=== PATIENT | male | born 1990 | race Caucasian/White ===

== ENCOUNTER → 2020-10-07 | Outpatient (CLI) | payer SELFPAY | END | disposition home or self-care (01) | LOC: LABWHC1 15:58 | PROVIDERS: ATTEND Emergency Medicine | DX: Z20.822 Contact with and (suspected) exposure to COVID-19 (principal) | CPT/HCPCS: U0003; C9803; U0005 ==

== ENCOUNTER 2024-07-28 17:13 | Emergency (ER) | payer BC ==
--- NOTE | 2024-07-28 17:45 | ED ---
General Adult HPI - General Source: patient, RN notes reviewed <Ling Alvarez - Last Filed: 07/28/24 17:44> <Juan Toribio - Last Filed: 07/28/24 20:42> - General Stated complaint: abd pain Time Seen by Provider: 07/28/24 17:30 - History of Present Illness Initial comments: Quick [id number] male with no significant past medical history presents emergency room chief complaint of right lower quadrant abdominal pain described as a pressure started approximately 1530. Endorses vomiting, nausea, diarrhea. Denies fevers or chills. Denies previous surgical abdominal history. (Ling Alvarez) Review of Systems ROS Other: All systems not noted in ROS Statement are negative. <Ling Alvarez - Last Filed: 07/28/24 17:44> ROS Other: All systems not noted in ROS Statement are negative. <Juan Toribio - Last Filed: 07/28/24 20:42> ROS Statement: Those systems with pertinent positive or pertinent negative responses have been documented in the HPI. General Exam <Ling Alvarez - Last Filed: 07/28/24 17:44> - General Exam Comments Initial Comments: Visual Physical Exam Vital signs reviewed General: Well-appearing, nontoxic, no acute distress. Head: Normocephalic, atraumatic Eyes: PERRLA, EOMI ENT: Airway patent Chest: Nonlabored breathing Skin: No visual rash, normal skin tone Neuro: Alert and oriented 3 Musculoskeletal: No gross abnormalities (Ling Alvarez) Course Vital Signs 07/28/24 17:55 Temperature 98.3 F Pulse Rate 87 Respiratory 16 Rate Blood Pressure 146/83 O2 Sat by Pulse 97 Oximetry Medical Decision Making <Ling Alvarez - Last Filed: 07/28/24 17:44> - Lab Data Result diagrams: 07/28/24 19:17 07/28/24 19:17 <Juan Toribio - Last Filed: 07/28/24 20:42> - Medical Decision Making I completed the quick note portion of this chart signed Ling Alvarez PA-C (Ling Alvarez) - Lab Data Lab Results 07/28/24 07/28/24 07/28/24 Range/Units 19:17 19:17 19:17 WBC 9.5 (3.8-10.6) k/uL RBC 5.41 (4.30-5.90) m/uL Hgb 15.7 (13.0-17.5) gm/dL Hct 46.0 (39.0-53.0) % MCV 85.0 (80.0-100.0) fL MCH 29.0 (25.0-35.0) pg MCHC 34.2 (31.0-37.0) g/dL RDW 12.0 (11.5-15.5) % Plt Count 296 (150-450) k/uL MPV 6.7 Neutrophils % 50 % Lymphocytes % 38 % Monocytes % 6 % Eosinophils % 3 % Basophils % 1 % Neutrophils # 4.7 (1.3-7.7) k/uL Lymphocytes # 3.6 (1.0-4.8) k/uL Monocytes # 0.5 (0-1.0) k/uL Eosinophils # 0.3 (0-0.7) k/uL Basophils # 0.1 (0-0.2) k/uL Sodium 138 (137-145) mmol/L Potassium 3.9 (3.5-5.1) mmol/L Chloride 103 (98-107) mmol/L Carbon Dioxide 25 (22-30) mmol/L Anion Gap 10 mmol/L BUN 17 (9-20) mg/dL Creatinine 0.92 (0.66-1.25) mg/dL Est GFR (CKD-EPI)AfAm >90 (>60 ml/min/1.73 sqM) Est GFR (CKD-EPI)NonAf >90 (>60 ml/min/1.73 sqM) Glucose 98 (74-99) mg/dL Plasma Lactic Acid Noam 0.9 (0.7-2.0) mmol/L Calcium 10.0 (8.4-10.2) mg/dL Total Bilirubin 1.2 (0.2-1.3) mg/dL AST 31 (17-59) U/L ALT 24 (4-49) U/L Alkaline Phosphatase 78 (38-126) U/L Total Protein 8.1 (6.3-8.2) g/dL Albumin 5.2 H (3.5-5.0) g/dL Amylase 72 (30-110) U/L Lipase 170 (23-300) U/L Disposition <Ling Alvarez - Last Filed: 07/28/24 17:44> Is patient prescribed a controlled substance at d/c from ED?: No <Juan Toribio - Last Filed: 07/28/24 20:42> Clinical Impression: Abdominal pain Disposition: HOME SELF-CARE Condition: Good Instructions (If sedation given, give patient instructions): Abdominal Pain (ED) Referrals: None,Stated [Primary Care Provider] - 1-2 days
[2024-07-28 17:58] VITALS: RESP 16
[2024-07-28 19:26] LABS: Basophils # (A) 0.1 k/uL (0-0.2); Basophils % (A) 1 %; Eosinophils # (A) 0.3 k/uL (0-0.7); Eosinophils % (A) 3 %; HGB 15.7 gm/dL (13.0-17.5); Lymphocytes # (A) 3.6 k/uL (1.0-4.8); Lymphocytes % (A) 38 %; MCHC 34.2 g/dL (31.0-37.0); Mean Platelet Volume 6.7; Monocytes # (A) 0.5 k/uL (0-1.0); Monocytes % (A) 6 %; Neutrophils # (A) 4.7 k/uL (1.3-7.7); Neutrophils % (A) 50 %; Platelet Count 296 k/uL (150-450); RBC 5.41 m/uL (4.30-5.90); WBC 9.5 k/uL (3.8-10.6)
[2024-07-28 19:38] LABS: ALT 24 U/L (4-49); AST 31 U/L (17-59); African American GFR (CKD) >90 (>60 ml/min/1.73 sqM); Albumin 5.2 g/dL (3.5-5.0); Alkaline Phosphatase 78 U/L (38-126); Amylase 72 U/L (30-110); Anion Gap 10 mmol/L; Blood Urea Nitrogen 17 mg/dL (9-20); Carbon Dioxide 25 mmol/L (22-30); Chloride 103 mmol/L (98-107); Glucose 98 mg/dL (74-99); Lipase 170 U/L (23-300); Non-African American GFR(CKD) >90 (>60 ml/min/1.73 sqM); Potassium 3.9 mmol/L (3.5-5.1); Sodium 138 mmol/L (137-145); Total Bilirubin 1.2 mg/dL (0.2-1.3); Total Protein 8.1 g/dL (6.3-8.2)
--- NOTE | 2024-07-28 20:24 | CT ---
EXAMINATION TYPE: CT abdomen pelvis w con DATE OF EXAM: 07/28/2024 8:12 PM COMPARISON: None. CLINICAL INDICATION: Male, 34 years old with history of RLQ ab pain, N/V, r/o appy; RLQ ab pain, N/V, r/o appy. TECHNIQUE: Axial CT abdomen pelvis w con;Sagittal and coronal reformats were created on a separate w orkstation. Contrast used:100 ml mL of Isovue 300 with IV Contrast, (none if empty) Oral contrast used: without Oral Contrast (none if empty) CT DLP: 898.6 mGycm, Automated exposure control for dose reduction was used. FINDINGS: LOWER CHEST: Unremarkable ABDOMEN LIVER: Unremarkable GALLBLADDER AND BILE DUCTS: Unremarkable. PANCREAS: Prominence of the body and tail without adjacent acute inflammatory changes. No associated pancreatic ductal dilatation. No suspicious hepatic lesion. SPLEEN: Unremarkable. ADRENAL GLANDS: Unremarkable. KIDNEYS AND URETERS: No evidence of hydronephrosis or renal calculus. The ureters are unremarkable. PELVIS BLADDER: No evidence for wall thickening or mass given limitations of exam. REPRODUCTIVE: Unremarkable. ABDOMEN & PELVIS STOMACH AND BOWEL: Stomach and duodenum are unremarkable. Moderate to large volume diffuse colonic st ool burden. No evidence of bowel obstruction. Appendix visualized and appears normal (series 3 image 72). PERITONEUM/RETROPERITONEUM: No evidence of pneumoperitoneum or free fluid. VASCULATURE: No evidence of aortic aneurysm. MUSCULOSKELETAL: No acute osseous abnormalities LYMPH NODES: No gross evidence for lymphadenopathy. SOFT TISSUE/ABDOMINAL WALL: Small fat-containing. Local area. IMPRESSION: 1. No acute abnormality in the abdomen/pelvis. Specifically, no evidence of acute appendicitis. 2. Moderate to large volume colonic stool burden suggesting constipation. [facility], , 07/28/2024 8:22 PM
[2024-07-28] MEDS: MAGNESIUM CITRATE 296 ML BOTTLE PO ONE (21:00)
[2024-07-28 21:07] VITALS: BP 131/80; PULSE 57; TEMP 98
== END 2024-07-28 21:07 | disposition home or self-care (01) ==
LOC: EC 17:13
DX: R10.31 Right lower quadrant pain (principal)
CPT/HCPCS: 36415; 80053; 82150; 83605; 83690; 85025; 74177; 99284; Q9967

== ENCOUNTER 2024-12-27 18:34 | Emergency (ER) | payer BC ==
[2024-12-27 18:41] VITALS: TEMP 98
--- NOTE | 2024-12-27 19:35 | ED ---
Wound/Laceration HPI - General Chief Complaint: Wound/Laceration Stated Complaint: right finger laceration Time Seen by Provider: 12/27/24 19:29 Source: patient, RN notes reviewed Mode of arrival: ambulatory Limitations: no limitations - History of Present Illness Initial Comments: 34-year-old male presenting for right middle finger laceration 4 days ago. States he was at work when he cut his finger on sharp aluminum. States the wound is healing well however when he took the bandage off he noticed there was a hair coming from the cut. He began to pull at it and felt pain and his knees buckled and he was concerned this was a nerve so he came to the ER for further evaluation. Last tetanus was 3 years ago. He has full range of motion of DIP and PIP joint. - Related Data Allergies Allergy/AdvReac Type Severity Reaction Status Date / Time No Known Allergies Allergy Verified 12/27/24 18:41 Review of Systems ROS Statement: Those systems with pertinent positive or pertinent negative responses have been documented in the HPI. ROS Other: All systems not noted in ROS Statement are negative. Past Medical History Past Medical History: No Reported History History of Any Multi-Drug Resistant Organisms: None Reported Past Surgical History: No Surgical Hx Reported Past Psychological History: No Psychological Hx Reported Smoking Status: Current every day smoker, Vaper Past Alcohol Use History: Rare Past Drug Use History: None Reported General Exam Limitations: no limitations General appearance: alert, in no apparent distress Head exam: Present: atraumatic, normocephalic, normal inspection Right Forearm Wrist exam: Present: normal inspection, full ROM. Absent: tenderness Hand Wrist exam: Present: full ROM. Absent: normal inspection (There is a superficial 2 cm well-healing abrasion present on dorsal aspect overlying third PIP joint. No active bleeding or purulence. There is a small, thin hair protruding from the wound.), tenderness, swelling, abrasion, erythema Vascular: Present: normal capillary refill, radial pulse. Absent: vascular compromise Neurological exam: Present: alert, oriented X3 Psychiatric exam: Present: normal affect, normal mood Skin exam: Present: warm, dry, intact, normal color. Absent: rash Course Vital Signs 12/27/24 18:39 Temperature 98 F Pulse Rate 77 Respiratory 16 Rate Blood Pressure 129/88 O2 Sat by Pulse 98 Oximetry Medical Decision Making - Medical Decision Making Was pt. sent in by a medical professional or institution (JUDY Romeo, [employer], urgent care, hospital, or retirement...) When possible be specific @ -No Did you speak to anyone other than the patient for history (EMS, parent, family, police, friend...)? What history was obtained from this source @ -No Did you review nursing and triage notes (agree or disagree)? Why? @ -I reviewed and agree with nursing and triage notes Were old charts reviewed (outside hosp., previous admission, EMS record, old EKG, old radiological studies, urgent care reports/EKG's, retirement records)? Report findings @ -No old charts were reviewed Differential Diagnosis (chest pain, altered mental status, abdominal pain women, abdominal pain men, vaginal bleeding, weakness, fever, dyspnea, syncope, headache, dizziness, GI bleed, back pain, seizure, CVA, palpatations, mental health, musculoskeletal)? @ -Differential Musculoskeletal Muscular strain, contusion, ligament sprain, fracture, arthritis, septic arthritis, bursitis, cellulitis, muscle spasm, nerve compression, DVT, arterial occlusion, herpes zoster, electrolyte abnormality, tumor.... This is not meant to be in all inclusive list EKG interpreted by me (3pts min.). @ -None X-rays interpreted by me (1pt min.). @ -None done CT interpreted by me (1pt min.). @ -None done U/S interpreted by me (1pt. min.). @ -None done What testing was considered but not performed or refused? (CT, X-rays, U/S, labs)? Why? @ -None What meds were considered but not given or refused? Why? @ -None Did you discuss the management of the patient with other professionals (professionals i.e. JUDY Romeo, [employer], lab, RT, psych nurse, psychologist social, certified court interpreter, teacher, corporate banking officer, case operator)? Give summary @ -No Was smoking cessation discussed for >3mins.? @ -No Was critical care preformed (if so, how long)? @ -No Were there social determinants of health that impacted care today? How? (Homelessness, low income, unemployed, alcoholism, drug addiction, transportation, low edu. Level, literacy, decrease access to med. care, fpc, rehab)? @ -No Was there de-escalation of care discussed even if they declined (Discuss DNR or withdrawal of care, Hospice)? DNR status @ -No What co-morbidities impacted this encounter? (DM, HTN, Smoking, COPD, CAD, Cancer, CVA, ARF, Chemo, Hep., AIDS, mental health diagnosis, sleep apnea, morbid obesity)? @ -None Was patient admitted / discharged? Hospital course, mention meds given and ro [place], prescriptions, significant lab abnormalities, going to OR and other pertinent info. @ -Discharge. 34-year-old male presenting for laceration to right third digit 4 days ago. Laceration is well-healing with no sign of bacterial infection located on overlying PIP joint of third right digit. There is a small, thin hair protruding from the wound. Full range of motion of the DIP and the PIP milan ints. No tendon or nerve involvement. Capillary refill less than 2 seconds and full sensation of all digits. Using sterile tweezers, hair was gently removed from wound. Reassured patient that there is no tendon or nerve involvement and wound is well-healing. Appropriate return precautions and supportive care discussed. Case was discussed with my ED attending Dr. Marlow. Undiagnosed new problem with uncertain prognosis? @ -No Drug Therapy requiring intensive monitoring for toxicity (Heparin, Nitro, Insulin, Cardizem)? @ -No Were any procedures done? @ -No Diagnosis/symptom? @ -Well-healing right third digit laceration Acute, or Chronic, or Acute on Chronic? @ -Acute Uncomplicated (without systemic symptoms) or Complicated (systemic symptoms)? @ -Uncomplicated Side effects of treatment? @ -No Exacerbation, Progression, or Severe Exacerbation? @ -No Poses a threat to life or bodily function? How? (Chest pain, [place], [place], pneumonia, PE, COPD, DKA, ARF, appy, cholecystitis, CVA, Diverticulitis, Homicidal, Suicidal, threat to staff... and all critical care pts) @ -No Disposition Clinical Impression: Laceration of right middle finger Disposition: HOME SELF-CARE Condition: Stable Additional Instructions: Please return to the Emergency Department if symptoms worsen or any other concerns. Is patient prescribed a controlled substance at d/c from ED?: No Referrals: None,Stated [Primary Care Provider] - 1-2 days Time of Disposition: 19:34
[2024-12-27 19:43] VITALS: BP 143/70; PULSE 78; RESP 18
== END 2024-12-27 19:48 | disposition home or self-care (01) ==
LOC: EC 18:34
DX: S61.212A Laceration without foreign body of right middle finger without damage to nail, initial encounter (principal); F17.290 Nicotine dependence, other tobacco product, uncomplicated; W26.8XXA Contact with other sharp object(s), not elsewhere classified, initial encounter; Y99.0 Civilian activity done for income or pay
CPT/HCPCS: 99282